=== PATIENT | male | born 1990 | race Caucasian/White ===

== ENCOUNTER 2017-08-18 15:34 | Emergency (ER) | payer OTHER, MEDICAID, SELFPAY ==
[2017-08-18 15:45] VITALS: BP 128/74; PULSE 90; RESP 12; TEMP 38.1; O2SAT 99
--- NOTE | 2017-08-18 16:54 | ED_ITS ---
HPI - URI/Sore Throat <RICHELLE Hamilton - Last Filed: 08/18/17 22:11> General Chief Complaint: Upper Respiratory Symptoms Stated Complaint: SORE THROAT POSS FEVER Time Seen by Provider: 08/18/17 15:43 History of Present Illness HPI Narrative: 27-year-old male here for complaint of having sore throat over the last several days. He has also had generalized malaise and fevers as well. Positive p.o. intake. He states that he was exposed to strep by a co-worker. He reports that his tonsils have been swollen and red. He denies any other concerns or complaints at this time. MD Complaint: fever and sore throat Related Data Previous Rx's Medication Instructions Recorded amoxicillin 500 mg PO BID #20 tab 08/18/17 Review of Systems <RICHELLE Hamilton - Last Filed: 08/18/17 22:11> Constitutional Reports chills, Reports fever(s) and Reports malaise Eyes Denies change in vision, Denies eye discharge, Denies irritation and Denies loss of vision ENT Ears, Nose, Mouth, and Throat: Reports sore throat Cardiovascular Denies dyspnea and Denies dyspnea on exertion Respiratory Denies cough, Denies dyspnea, Denies dyspnea on exertion and Denies wheezing Genitourinary Denies hematuria, Denies flank pain, Denies urinary incontinence and Denies urinary urgency Musculoskeletal Denies back pain, Denies muscle weakness, Denies numbness and Denies tingling Neurologic Denies loss of vision, Denies numbness and Denies tingling Allergic/Immunologic Denies wheezing Exam <RICHELLE Hamilton - Last Filed: 08/18/17 22:11> Initial Vital Signs Initial Vital Signs: Vital Signs Temperature 100.6 F H 08/18/17 15:45 Pulse Rate 90 08/18/17 15:45 Respiratory Rate 12 08/18/17 15:45 Blood Pressure 128/74 H 08/18/17 15:45 Pulse Oximetry 99 08/18/17 15:45 Const General: cooperative and well developed Nutritional Appearance: well nourished Orientation: alert, awake, oriented x3 and not confused [facility] Mouth: oral mucosae normal, oropharynx normal and moist mucous membranes Throat: posterior oropharynx abnormal (The erythema and swelling to oropharynx. With exudate) Eyes General: appearance normal, both eyes and all related structures Eyelids: eyelids normal Conjunctivae: conjunctivae normal Sclera: sclerae normal Pupils: PERRL EOM: EOM intact bilaterally Resp Effort & Inspection: normal respiratory effort, able to speak in complete sentences, no respiratory distress and no use of accessory muscles Auscultation: clear to auscultation bilaterally, no rales, no rhonchi and no wheezes Cardio Rate: regular rate Rhythm: regular rhythm Heart Sounds: no click, no gallops, no murmurs and no rubs Skin General: no rashes or lesions noted, No jaundice and No petechiae Neuro General: alert, oriented x3, gait normal and no focal motor deficits Cranial Nerves: CN's II-XI intact bilaterally Speech: speech normal Motor: strength 5/5 throughout Sensory Exam: no sensory deficits noted <Jovanny Duncan DO - Last Filed: 09/06/17 07:41> Initial Vital Signs Initial Vital Signs: Vital Signs Temperature 100.6 F H 08/18/17 15:45 Pulse Rate 90 08/18/17 15:45 Respiratory Rate 12 08/18/17 15:45 Blood Pressure 128/74 H 08/18/17 15:45 Pulse Oximetry 99 08/18/17 15:45 Course <RICHELLE Hamilton - Last Filed: 08/18/17 22:11> Vital Signs - 8 hr 08/18/17 15:45 Temperature 100.6 F H Pulse Rate 90 Respiratory Rate 12 Blood Pressure 128/74 H Pulse Oximetry 99 <Jovanny Duncan DO - Last Filed: 09/06/17 07:41> Vital Signs - 8 hr 08/18/17 15:45 Temperature 100.6 F H Pulse Rate 90 Respiratory Rate 12 Blood Pressure 128/74 H Pulse Oximetry 99 MDM - URI/Sore Throat <RICHELLE Hamilton - Last Filed: 08/18/17 22:11> MDM Narrative Medical decision making narrative: Rapid strep test was obtained and was negative. However due to presentation of the oropharynx will treat empirically for strep with amoxicillin. [id number] Tylenol or Motrin as needed for any discomfort. Plenty of fluids and rest. Follow up with primary care provider. Return emergency room for any worsening symptoms. Discharge Plan Departure Patient Disposition: Home, Self-Care Clinical Impression: Pharyngitis, streptococcal Discharge Date/Time: 08/18/17 17:00 Interventions: ED Discharge Assessment Last Done: 08/18/17 16:59 Instructions: DI for Strep Throat Activity Restrictions/Additional Instructions: Strep test was negative however due to recent exposure to strep and the presentation of the throat will treat for strep throat just in case the test was a false negative. He had been prescribed amoxicillin use as directed. Follow up with her primary care provider. Use [id number] Tylenol or Motrin as needed for any discomfort fever. Plenty of fluids and rest. Return emergency room for worsening symptoms. Prescriptions: New amoxicillin 500 mg tablet 500 mg PO BID Qty: 20 RF: 0 Referrals: [facility] [Provider Group] <Jovanny Duncan DO - Last Filed: 09/06/17 07:41> Cosign ED Attending Nancy Attestation: I was immediately available in the department for consultation. This documentation has been reviewed and I agree with assessment and plan. Supervised by Jovanny Duncan DO
== END 2017-08-18 17:00 | disposition home or self-care (01) ==
PROVIDERS: Emergency Provider Nurse Practitioner Family
DX: J02.0 Streptococcal pharyngitis (principal)
CPT/HCPCS: 87880; 99282